=== PATIENT | male | born 1965 | race American Indian/Alaskan Native ===

== ENCOUNTER 2018-05-15 06:02 | Emergency (ER) | payer OTHER ==
--- NOTE | 2018-05-15 07:18 | Emergency Department Report ---
ED General Adult HPI - General Chief complaint: Headache Stated complaint: HEADACHES Time Seen by Provider: 05/15/18 06:59 Source: patient Mode of arrival: Ambulatory Limitations: No Limitations - History of Present Illness Initial comments: 53-year-old male presents to the ED with headache, tremors, tingling sensations to diffuse body. Patient states he awoke with the symptoms this morning. Patient states headache was initially frontal, states it began yesterday. He took ibuprofen for it. Patient states headache currently resolved at this time. Also states tremor and tingling sensation has drastically improved. Patient states he has been under lots of stress for approximately 3 months. 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 Patient also states a of a heart attack one week ago. Patient denies chest pain, shortness of breath, fever, nausea, vomiting. Patient has history of hypertension, however has not taken any BP meds in 1 year. PCP: none -: This morning Location: head Severity scale (0 -10): 3 Quality: other (throbbing headache; tingling to body) Consistency: now resolved Improves with: none Worsens with: none Associated Symptoms: headaches. denies: chest pain, fever/chills, nausea/vomiting, shortness of breath, syncope Treatments Prior to Arrival: none - Related Data Home Medications Medication Instructions Recorded Confirmed Last Taken Atenolol [Tenormin] 50 mg PO DAILY 03/29/14 03/29/14 03/29/14 Previous Rx's Medication Instructions Recorded Last Taken Type Butalb/Acetaminophen/Caffeine 1 each PO Q6H PRN #14 capsule 03/30/14 Unknown Rx [Fioricet 50-300-40 mg Capsule] Atenolol [Tenormin] 25 mg PO DAILY #30 tab 05/15/18 Unknown Rx Methocarbamol [Robaxin-750] 750 mg PO Q6HR PRN #20 tablet 05/15/18 Unknown Rx Naproxen [Naprosyn] 500 mg PO BID #20 tablet 05/15/18 Unknown Rx Allergies Allergy/AdvReac Type Severity Reaction Status Date / Time lisinopril Allergy Swelling Verified 03/29/14 18:17 ED Review of Systems ROS: Stated complaint: HEADACHES Other details as noted in HPI Comment: All other systems reviewed and negative Constitutional: denies: chills, fever Respiratory: denies: shortness of breath Cardiovascular: denies: chest pain Gastrointestinal: denies: abdominal pain, vomiting Musculoskeletal: back pain Neurological: headache, paresthesias ED Past Medical Hx - Past Medical History Previous Medical History?: Yes Hx Hypertension: Yes - Surgical History Past Surgical History?: Yes Hx Appendectomy: Yes - Social History Smoking Status: Never Smoker Substance Use Type: Alcohol - Medications Home Medications: Home Medications Medication Instructions Recorded Confirmed Last Taken Type Atenolol [Tenormin] 50 mg PO DAILY 03/29/14 03/29/14 03/29/14 History Butalb/Acetaminophen/Caffeine 1 each PO Q6H PRN #14 capsule 03/30/14 Unknown Rx [Fioricet 50-300-40 mg Capsule] Atenolol [Tenormin] 25 mg PO DAILY #30 tab 05/15/18 Unknown Rx Methocarbamol [Robaxin-750] 750 mg PO Q6HR PRN #20 tablet 05/15/18 Unknown Rx Naproxen [Naprosyn] 500 mg PO BID #20 tablet 05/15/18 Unknown Rx ED Physical Exam - General Limitations: No Limitations General appearance: alert, in no apparent distress - Head Head exam: Present: atraumatic, normocephalic - Eye Eye exam: Present: normal appearance, PERRL, EOMI - ENT ENT exam: Present: mucous membranes dry - Neck Neck exam: Present: normal inspection - Respiratory Respiratory exam: Present: normal lung sounds bilaterally. Absent: respiratory distress - Cardiovascular Cardiovascular Exam: Present: normal rhythm, tachycardia - GI/Abdominal GI/Abdominal exam: Present: soft. Absent: distended, tenderness - Extremities Exam Extremities exam: Present: normal inspection - Neurological Exam Neurological exam: Present: alert, oriented X3, CN II-XII intact. Absent: motor sensory deficit - Psychiatric Psychiatric exam: Present: normal affect, normal mood - Skin Skin exam: Present: warm, dry, intact, normal color. Absent: rash ED Course Vital Signs 05/15/18 05/15/18 05/15/18 06:10 07:16 07:22 Temperature 97.5 F L Pulse Rate 127 H 107 H Respiratory 16 22 Rate Blood Pressure 176/120 Blood Pressure 145/102 [Left] O2 Sat by Pulse 97 98 Oximetry 05/15/18 05/15/18 05/15/18 07:30 07:45 08:00 Temperature Pulse Rate 112 H 99 H Respiratory 17 13 11 L Rate Blood Pressure 148/116 139/92 157/114 Blood Pressure [Left] O2 Sat by Pulse 97 98 97 Oximetry 05/15/18 05/15/18 05/15/18 08:15 08:38 08:45 Temperature Pulse Rate 96 H 75 100 H Respiratory 15 11 L Rate Blood Pressure 159/101 139/92 165/109 Blood Pressure [Left] O2 Sat by Pulse 99 99 Oximetry 05/15/18 05/15/18 05/15/18 09:00 09:15 09:30 Temperature Pulse Rate 101 H 98 H 106 H Respiratory 12 11 L 16 Rate Blood Pressure 163/104 146/98 141/106 Blood Pressure [Left] O2 Sat by Pulse 97 99 Oximetry ED Medical Decision Making - Lab Data Result diagrams: 05/15/18 07:10 05/15/18 08:10 - EKG Data -: EKG Interpreted by Me EKG shows normal: sinus rhythm, axis, intervals, QRS complexes, ST-T waves Rate: normal - EKG Data Interpretation: no acute changes, LVH - Radiology Data Radiology results: report reviewed, image reviewed - Medical Decision Making 53-year-old male with headache and elevated blood pressure, both of which is improved at this time. No neuro deficits on exam, CT head normal. Patient also reported full body paresthesias and tremors. Lab work was done and found to be normal, EKG normal as well. Symptoms possibly related to stress and anxiety, as patient reports his mother earlier in the week, his father is dealing with prostate cancer, and he recently lost his job. EtOH withdrawal unlikely, as patient states his last drink was 2 weeks ago. Patient given prescription for her BP meds. Return precautions given. Outpatient follow-up advised. - Differential Diagnosis CVA, hypertensive DUKES, ETOH withdrawal, anxiety Critical care attestation.: If time is entered above; I have spent that time in minutes in the direct care of this critically ill patient, excluding procedure time. ED Disposition Clinical Impression: Essential hypertension, Headache, Acute lumbar myofascial strain Disposition: DC-01 TO HOME OR SELFCARE Is pt being admited?: No Condition: Stable Instructions: Muscle Strain (ED), Abuse of Alcohol (ED), Acute Headache (ED), Hypertension (ED), Anxiety (ED) Prescriptions: Naproxen [Naprosyn] 500 mg PO BID #20 tablet Methocarbamol [Robaxin-750] 750 mg PO Q6HR PRN #20 tablet PRN Reason: Spasms Atenolol [Tenormin] 25 mg PO DAILY #30 tab Referrals: DAREN ENGLAND MD [Primary Care Provider] - 3-5 Days [facility] [Provider Group] - 3-5 Days
[2018-05-15 07:29] LABS: Basophils # (Auto) 0.1 K/mm3 (0.0-0.1); Basophils % (Auto) 0.9 % (0.0-1.8); Eosinophils # (Auto) 0.1 K/mm3 (0.0-0.4); Eosinophils % (Auto) 0.6 % (0.0-4.3); Hemoglobin 16.7 gm/dl (11.8-15.2); Lymphocytes # (Auto) 1.1 K/mm3 (1.2-5.4); Lymphocytes % (Auto) 9.1 % (13.4-35.0); Mean Corpuscular HGB Conc 34 % (32-34); Mean Corpuscular Volume 91 fl (84-94); Monocytes # (Auto) 1.1 K/mm3 (0.0-0.8); Monocytes % (Auto) 9.1 % (0.0-7.3); Platelet Count 267 K/mm3 (140-440); Red Blood Count 5.41 M/mm3 (3.65-5.03); Red Cell Distribution Width 14.4 % (13.2-15.2)
[2018-05-15 07:58] LABS: BUN/Creatinine Ratio TNR; Blood Urea Nitrogen TNR mg/dL (9-20); Calcium TNR mg/dL (8.4-10.2)
[2018-05-15 07:59] LABS: Hemolysis Index TNR
--- NOTE | 2018-05-15 08:07 | Cat Scan Report ---
PROCEDURE: CT HEAD/BRAIN WO CON TECHNIQUE: CT imaging is obtained through the brain without contrast HISTORY: headache COMPARISONS: FINDINGS: The ventricles, cisterns and sulci are within normal limits. No intra parenchymal or extra-axial mas s, hemorrhage, or mass effect. Rey and white-matter differentiation is within normal limits. Normal spherical shape of the globes. Paranasal sinuses and mastoid air cells are clear. No skull o r facial fracture visualized. IMPRESSION: No acute intracranial abnormality. This document is electronically signed by Jarred Quintanilla MD., May 15 2018 08:04:50 AM ET
[2018-05-15 08:32] LABS: BUN/Creatinine Ratio 26; Blood Urea Nitrogen 31 mg/dL (9-20); Calcium 9.8 mg/dL (8.4-10.2); Hemolysis Index 91
[2018-05-15 09:14] LABS: Bacteria,Urine 1+ /HPF (Negative); Bilirubin,Urine NEG (Negative); Blood,Urine MOD (Negative); Color,Urine Amber (Yellow); Mucus,Urine FEW /HPF; Urobilinogen,Urine < 2.0 mg/dL (<2.0)
[2018-05-15 09:40] VITALS: BP 141/106
== END 2018-05-15 09:35 | disposition home or self-care (01) ==
LOC: ED 06:02
DX: S39.012A Strain of muscle, fascia and tendon of lower back, initial encounter (principal); I10 Essential (primary) hypertension; Z88.6 Allergy status to analgesic agent; Z90.49 Acquired absence of other specified parts of digestive tract; Z79.899 Other long term (current) drug therapy; X58.XXXA Exposure to other specified factors, initial encounter; Y93.89 Activity, other specified; Y99.8 Other external cause status; Y92.89 Other specified places as the place of occurrence of the external cause
CPT/HCPCS: 36415; 70450; 80048; 81001; 84484; 85025; 93005; 93010

== ENCOUNTER 2021-05-27 14:29 | Emergency (ER) | payer SELFPAY ==
[2021-05-27] MEDS ORDERED: methylPREDNISolone Sod Succinate 125 MG/2 ML INJ IV ONE (14:51)
[2021-05-27] MEDS ORDERED: FAMOTIDINE 20 MG/2 ML INJ IV ONE (14:51)
[2021-05-27] MEDS ORDERED: diphenhydrAMINE 50 MG/ML VIAL IV ONE (14:51)
--- NOTE | 2021-05-27 14:55 | Emergency Department Report ---
HPI - General Chief Complaint: Allergic Reaction Time Seen by Provider: 05/27/21 14:40 - HPI HPI: Room 21 The patient is a 56-year-old male present with a chief complaint of facial swelling. Patient states he was started on lisinopril approximately 3 weeks ago for a new diagnosis of hypertension. Patient states last night at approximately 1815 he noticed some tingling to his left upper lip but thought nothing of it. The patient states that night before going to bed he had noticed some slight swelling to the left side of her upper lip but when he awakened this morning at 05: 30 he noticed upper lip and face had swollen. Patient states he took a Benadryl at 06: 30 and 10: 30 but there is no improvement. Patient denies swelling of the tongue. Patient denies shortness of breath. ED Past Medical Hx - Past Medical History Hx Hypertension: Yes - Surgical History Hx Appendectomy: Yes - Family History Family history: no significant - Social History Smoking Status: Never Smoker Substance Use Type: None (Denies illicit drug use) - Medications Home Medications: Home Medications Medication Instructions Recorded Confirmed Last Taken Type atenoloL [Tenormin] 50 mg PO DAILY 03/29/14 03/29/14 03/29/14 History Butalb/Acetaminophen/Caffeine 1 each PO Q6H PRN #14 capsule 03/30/14 Unknown Rx [Fioricet 50-300-40 mg Capsule] Naproxen [Naprosyn] 500 mg PO BID #20 tablet 05/15/18 Unknown Rx atenoloL [Tenormin] 25 mg PO DAILY #30 tab 05/15/18 Unknown Rx methocarbamoL [Robaxin-750] 750 mg PO Q6HR PRN #20 tablet 05/15/18 Unknown Rx ED Review of Systems ROS: Stated complaint: ALLERGIC REACTION Other details as noted in HPI Constitutional: no symptoms reported Eyes: denies: eye pain ENT: other (Lip swelling) Respiratory: denies: cough, shortness of breath Cardiovascular: denies: chest pain Endocrine: no symptoms reported Gastrointestinal: denies: vomiting Genitourinary: denies: dysuria Skin: other (Lip swelling) Neurological: denies: headache Physical Exam - Physical Exam Vital Signs: Vital Signs 05/27/21 14:34 Temperature 99.0 F Pulse Rate 112 H Respiratory 18 Rate Blood Pressure 205/105 [Right] O2 Sat by Pulse 100 Oximetry Physical Exam: GENERAL: The patient is well-developed well-nourished male lying on stretcher not appearing to be in acute distress. Obvious swelling to the face and upper lip HEENT: Normocephalic. Atraumatic. Extraocular motions are intact. Swelling to upper and lower lips. Uvula midline NECK: Supple. There is no stridor CHEST/LUNGS: Clear to auscultation. There is no respiratory distress noted. HEART/CARDIOVASCULAR: Regular. There is no tachycardia. There is no gallop rub or murmur. ABDOMEN: Abdomen is soft, nontender. Patient has normal bowel sounds. There is no abdominal distention. SKIN: There is no rash. There is no edema. There is no diaphoresis. NEURO: The patient is awake, alert, and oriented. The patient is cooperative. The patient has no focal neurologic deficits. The patient has normal speech. GCS MUSCULOSKELETAL: There is no evidence of acute injury. ED Course Vital Signs 05/27/21 14:34 Temperature 99.0 F Pulse Rate 112 H Respiratory 18 Rate Blood Pressure 205/105 [Right] O2 Sat by Pulse 100 Oximetry ED Medical Decision Making - Lab Data Result diagrams: 05/27/21 15:05 05/27/21 15:05 Laboratory Tests 05/27/21 05/27/21 15:05 15:05 WBC 8.8 RBC 3.95 Hgb 11.7 L Hct 35.7 MCV 91 MCH 30 MCHC 33 RDW 16.9 H Plt Count 274 Lymph % (Auto) 14.9 Elk % (Auto) 13.0 H Eos % (Auto) 0.3 Baso % (Auto) 0.5 Lymph # (Auto) 1.3 Elk # (Auto) 1.1 H Eos # (Auto) 0.0 Baso # (Auto) 0.0 Seg Neutrophils % 71.3 H Seg Neutrophils # 6.2 Sodium 137 Potassium 3.9 Chloride 99.5 Carbon Dioxide 22 Anion Gap 19 BUN 23 H Creatinine 1.3 Estimated GFR > 60 BUN/Creatinine Ratio 18 Glucose 95 Calcium 9.6 - Differential Diagnosis Angioedema Critical care attestation.: If time is entered above; I have spent that time in minutes in the direct care of this critically ill patient, excluding procedure time. ED Disposition Clinical Impression: Angioedema Disposition: 09 ADMITTED INPATIENT Is pt being admited?: Yes Does the pt Need Aspirin: No Condition: Fair Time of Disposition: 15:59 (Hospitalist called (Dr. Stephenson))
[2021-05-27 15:33] LABS: Basophils % (Auto) 0.5 % (0.0-1.8); Eosinophils % (Auto) 0.3 % (0.0-4.3); Hematocrit 35.7 % (35.5-45.6); Hemoglobin 11.7 gm/dl (11.8-15.2); Lymphocytes # (Auto) 1.3 K/mm3 (1.2-5.4); Lymphocytes % (Auto) 14.9 % (13.4-35.0); Mean Corpuscular HGB Conc 33 % (32-34); Mean Corpuscular Volume 91 fl (84-94); Monocytes # (Auto) 1.1 K/mm3 (0.0-0.8); Platelet Count 274 K/mm3 (140-440); Red Blood Count 3.95 M/mm3 (3.65-5.03); Red Cell Distribution Width 16.9 % (13.2-15.2)
[2021-05-27 15:53] LABS: BUN/Creatinine Ratio 18; Blood Urea Nitrogen 23 mg/dL (9-20); Calcium 9.6 mg/dL (8.4-10.2); Hemolysis Index 3
--- NOTE | 2021-05-27 18:33 | Consultation ---
History of Present Illness - Reason for Consult Consult date: 05/27/21 Angioedema Requesting physician: GUILLERMINA CINTRON - History of Present Illness 56 YO Male with HTN, Obesity presents ED for evaluation. Patient states that he was newly diagnosed with hypertension and was initiated on lisinopril daily. Patient states that he was in his usual state of health last night. Patient stated approximately 15 hours he experienced tingling in his left upper lip. Patient states that he awoke from sleep this morning at 0530 hrs. and was found to swollen upper lip and face. Patient reports taking Benadryl with no significant improvement. Patient transported to [facility] via private vehicle for further care and evaluation of the aforementioned symptoms. The patient was see n and evaluated emergency department. Lab and imaging studies reviewed. Patient found to have angioedema secondary to BRENT inhibitor therapy. Patient treated with IV steroid therapy with profound improvement in symptoms. Patient medically optimized back to usual state of health. Patient discharged home instructed follow-up with primary care physician in 3 to 5 days. Past History Past Medical History: hypertension Past Surgical History: No surgical history, Other (Reviewed) Social history: single Family history: hypertension Medications and Allergies Allergies Allergy/AdvReac Type Severity Reaction Status Date / Time lisinopril Allergy Swelling Verified 03/29/14 18:17 Home Medications Medication Instructions Recorded Confirmed Last Taken Type atenoloL [Tenormin] 50 mg PO DAILY 03/29/14 03/29/14 03/29/14 History Butalb/Acetaminophen/Caffeine 1 each PO Q6H PRN #14 capsule 03/30/14 Unknown Rx [Fioricet 50-300-40 mg Capsule] Naproxen [Naprosyn] 500 mg PO BID #20 tablet 05/15/18 Unknown Rx atenoloL [Tenormin] 25 mg PO DAILY #30 tab 05/15/18 Unknown Rx methocarbamoL [Robaxin-750] 750 mg PO Q6HR PRN #20 tablet 05/15/18 Unknown Rx Prednisone [predniSONE 10 mg 10 mg PO .TAPER #1 05/27/21 Unknown Rx (6-Day Pack, 21 Tabs)] amLODIPine 10 mg PO DAILY #30 tab 05/27/21 Unknown Rx Review of Systems Constitutional: no weight loss, no fever, no sweats Ears, nose, mouth and throat: other (Lip swelling, facial swelling), no ear pain, no tinnitis, no decreased hearing, no nose pain Cardiovascular: no chest pain, no palpitations, no rapid/irregular heart beat, no syncope Respiratory: no cough, no cough with sputum, no hemoptysis, no shortness of breath Gastrointestinal: no abdominal pain, no vomiting, no diarrhea, no constipation, no change in bowel habits Genitourinary Male: no hematuria, no flank pain, no discharge, no urinary frequency, no nocturia Rectal: no bleeding Musculoskeletal: no arm numbness/tingling, no leg numbness/tingling Integumentary: no rash, no pruritis Neurological: no head injury, no parathesias, no tingling, no syncope Psychiatric: no anxiety, no memory loss, no change in sleep habits, no sleep disturbances, no insomnia Endocrine: no cold intolerance, no excessive thirst, no polyuria, no nocturia, no flushing, no weight change Hematologic/Lymphatic: no easy bleeding, no lymphadenopathy Allergic/Immunologic: no urticaria, no allergic rhinitis, no persistent infections, no anaphylaxis Exam - Constitutional Vitals: Temp Pulse Resp BP Pulse Ox 99.0 F 84 16 139/107 96 05/27/21 14:34 05/27/21 16:37 05/27/21 16:37 05/27/21 16:37 05/27/21 16:37 General appearance: Present: no acute distress, obese - EENT Eyes: Present: PERRL ENT: hearing intact, clear oral mucosa - Neck Neck: Present: supple, normal ROM - Respiratory Respiratory effort: normal Respiratory: bilateral: CTA - Cardiovascular Heart Sounds: Present: S1 & S2. Absent: rub, click - Extremities Extremities: pulses symmetrical, No edema Peripheral Pulses: within normal limits - Abdominal General gastrointestinal: Present: soft, non-tender, non-distended, normal bowel sounds Male genitourinary: Present: normal - Integumentary Integumentary: Present: clear, warm, dry - Musculoskeletal Musculoskeletal: gait normal, strength equal bilaterally - Psychiatric Psychiatric: appropriate mood/affect, intact judgment & insight - Neurologic Neurologic: CNII-XII intact, moves all extremities Results - Labs CBC & Chem 7: 05/27/21 15:05 05/27/21 15:05 Labs: Abnormal lab results 05/27/21 05/27/21 Range/Units 15:05 15:05 Hgb 11.7 L (11.8-15.2) gm/dl RDW 16.9 H (13.2-15.2) % Benzie % (Auto) 13.0 H (0.0-7.3) % Benzie # (Auto) 1.1 H (0.0-0.8) K/mm3 Seg Neutrophils % 71.3 H (40.0-70.0) % BUN 23 H (9-20) mg/dL Assessment and Plan - Patient Problems (1) Angioedema Current Visit: Yes Status: Acute Qualifiers: Encounter type: initial encounter Qualified Code(s): T78.3XXA - Angioneurotic edema, initial encounter Plan to address problem: Patient medically optimized. Initiate therapy with amlodipine. Steroid taper, supportive care. Patient structured to follow-up with primary care physician within 3 to 5 days with blood pressure log. Patient counseled regarding balanced diet, increase physical activity discharge. Advanced care planning conducted in ED. +30 minutes. Patient knowledges understanding agreement with care plan.
[2021-05-27 21:31] VITALS: BP 167/98
== END 2021-05-27 21:03 | disposition home or self-care (01) ==
LOC: ED 14:29
DX: I10 Essential (primary) hypertension (principal); Z90.89 Acquired absence of other organs
CPT/HCPCS: 36415; 80048; 85025; 96374; 96375; 99283; J1200; J2930; J3490